=== PATIENT | female | born 1930 | race Caucasian/White ===

== ENCOUNTER 2016-08-23 12:45 | Inpatient (IN) ==
[2016-08-23] MEDS ORDERED: NS 500 ML IV ONE (13:30)
[2016-08-23 13:43] LABS: MANUAL DIFF NEEDED? NO
[2016-08-23 13:43] LABS: URINE CULTURE NEEDED? NO; URINE MICRO REVIEW NEEDED? NO; URINE SOURCE CATH
[2016-08-23 13:47] LABS: BASO% 0.1 % (0.0-0.8); EOS# 0.15 X1000 (0.0-0.7); EOS% 1.7 % (0.0-10.0); HEMATOCRIT 40.6 % (37.0-47.0); HEMOGLOBIN 12.9 g/dL (12.0-16.0); LYMPH% 13.7 % (20.5-51.1); MCH 28.4 PG (27-31); MCHC 31.8 g/dL (33-37); MCV 89.4 FL (81-99); MONO# 1.18 X1000 (0.11-0.59); MONO% 13.5 % (1.7-9.3); MPV 10.9 FL (7.4-10.4); PLT 225 X1000 (130-400); RBC 4.54 XMIL (4.2-5.4)
[2016-08-23 13:50] LABS: BILIRUBIN URINE NEGATIVE (NEGATIVE); BLOOD URINE NEGATIVE (NEGATIVE); COLOR YELLOW; GLUCOSE URINE NEGATIVE (NEGATIVE); LEUKOCYTES URINE NEGATIVE (NEGATIVE); NITRITE URINE NEGATIVE (NEGATIVE); PROTEIN URINE NEGATIVE (NEGATIVE); SP GRAVITY URINE 1.011; TURBIDITY URINE HAZY (CLEAR); UROBILINOGEN URINE NORMAL (NORMAL)
[2016-08-23 13:52] LABS: UR EPITHELIAL CELLS <10 /HPF (<10); URINE BACTERIA NEGATIVE /HPF; URINE RBC <10 /HPF (<10); URINE WBC <10 /HPF (<10)
[2016-08-23 13:57] LABS: ALBUMIN 3.2 g/dL (3.5-5.0); CALCIUM 10.3 mg/dL (8.8-10.2); MAGNESIUM 1.9 mg/dL (1.5-2.7); POTASSIUM 4.1 mmol/L (3.5-5.1); TOTAL BILIRUBIN 0.44 mg/dL (0.20-1.00); TOTAL PROTEIN 6.9 g/dL (6.3-8.3)
[2016-08-23] MEDS ORDERED: LASIX IV ONE (14:17)
--- NOTE | 2016-08-23 14:27 | PROVIDER DOCUMENTATION ---
This chart was entered by Beth White Scribe, acting as scribe for Joseph Naik MD. HPI-General Adult - General Chief Complaint: General Adult Stated Complaint: GENERALIZED WEAKNESS, DECREASE APPETITE Time Seen by Provider: 08/23/16 13:06 Source: patient Allergies/Adverse Reactions: Patient Allergies Allergy/AdvReac Type Severity Reaction Status Date / Time No Known Allergies Allergy Verified 08/23/16 13:02 Home Medications: Home Medication List Medication Instructions Recorded Confirmed Last Taken Type Aspirin 81 mg PO DAILY 05/12/15 08/23/16 08/22/16 History Donepezil [Aricept] 5 mg PO HS 05/12/15 08/23/16 08/22/16 History Topiramate 25 mg PO BID 05/12/15 08/23/16 08/22/16 History Cholecalciferol (Vit D3) [Vitamin 0 unit PO DAILY 08/23/16 08/23/16 08/22/16 History D3] Citalopram [Celexa] 20 mg PO DAILY 08/23/16 08/23/16 08/22/16 History Gabapentin 600 mg PO TID 08/23/16 08/23/16 08/22/16 History Levothyroxine Sodium 88 mcg PO DAILY 08/23/16 08/23/16 08/22/16 History Multivit-Min/FA/Lycopen/Lutein 1 each PO DAILY 08/23/16 08/23/16 08/22/16 History [Adults 50+ Multivitamin Tablet] [place]-3 Fatty Acids [Fish Oil] 0 mg PO DAILY 08/23/16 08/23/16 08/22/16 History - History of Present Illness -Gen Adult Nature of Presenting Problems: 85 year old female presents to the ER with complaint of generalized weakness and decreased appetite x 2 days. Pt uses walker to ambulate. Denies fall, LOC. Pt also reports sleeping for 17 hours straight 1 day ago. Onset/Duration: reports: 2 days ago Timing: reports: still present Associated Symptoms: reports: loss of appetite, weakness Review of Systems - Adult - REVIEW OF SYSTEMS - ADULT Constitutional: denies: chills, fever Eyes: reports: no symptoms reported Ears, Nose, Mouth & Throat: reports: no symptoms reported Cardiovascular: reports: no symptoms reported Respiratory: reports: no symptoms reported Gastrointestinal: reports: no symptoms reported Genitourinary: reports: no symptoms reported Musculoskeletal: reports: muscle weakness. denies: joint swelling Integumentary: reports: no symptoms reported Neurological: reports: no symptoms reported Psychiatric: reports: no symptoms reported Endocrine: reports: no symptoms reported Hematologic/Lymphatic: reports: no symptoms reported Allergic/Immunologic: reports: no symptoms reported All Other Systems: Reviewed and Negative Past History - Adult - PAST MEDICAL HISTORY-ADULT Review of Records: reports: Nursing Assessment Review, Medications Reviewed - IMMUNIZATION STATUS Childhood Immunizations: See Nurse Assessment Flu Vaccine: See Nurse Assessment Physical Exam-General - CONSTITUTIONAL General Appearance: alert, no apparent distress - EYES Eyes: PERRL/EOMI, pink conjunctivae - HEAD, EARS, NOSE, MOUTH & THROAT HENMT: normocephalic/atraumatic, moist mucous membranes - NECK Neck: full range of motion, normal inspection - RESPIRATORY Respiratory: lungs clear, normal breath sounds - CARDIOVASCULAR Cardiovascular: normal peripheral pulses, regular rate, rhythm - MUSCULOSKELETAL Back Exam: no CVA tenderness, no vertebral tenderness Extremity: normal range of motion, normal inspection - SKIN Integumentary: normal color, warm/dry - NEUROLOGIC Neurologic: grossly normal, no motor/sensory deficits - PSYCHIATRIC Psych/Mental Status: normal mood/affect, normal thought content, normal thought process, oriented x 3 Progress - PLAN OF CARE/RESULTS Progress/Plan/Lab Results: Vital Signs - 8 hr 08/23/16 13:00 08/23/16 13:09 Temperature 97.4 F L Pulse Rate 65 67 Respiratory Rate 13 22 Blood Pressure 111/59 109/56 O2 Sat by Pulse Oximetry 95 94 L Result Diagrams: 08/23/16 13:07 08/23/16 13:07 - REASSESSMENT Reassessment #1 Time Reassessed: 14:25 Status: improving (Pt is stable. Discussed with Dr. Bedoya, who is pt's PCP and is java application developer at [facility], agrees to admit pt to him at [facility]. Pt and her family are agreed with the plan.) Departure - Departure Time of Disposition Decision: 14:26 DIAGNOSIS: Generalized weakness CHF (congestive heart failure) Qualifiers: Congestive heart failure type: unspecified congestive heart failure type Congestive heart failure chronicity: acute Qualified Code(s): I50.9 - Heart failure, unspecified Hypotension Qualifiers: Hypotension type: unspecified hypotension type Qualified Code(s): I95.9 - Hypotension, unspecified Disposition: ADMITTED INPATIENT 09 Certified Medical Emergency: Emergent Condition: Stable - Critical Care Note This patient required my direct & personal management of CC.: No This chart was documented by the indicated scribe, (Beth White, Scribe) and accurately reflects the services I performed and decisions made by me, Joseph Naik MD, as attested by the provider's signature.
--- NOTE | 2016-08-23 14:29 | Diag Imaging Result Doc PS360 ---
EXAM: CHEST-PORTABLE HISTORY: Cough TECHNIQUE: AP portable at 1343 COMMENT: The inspiration is better than on 05/16/2015. There are granulomata on the left. Patient is rotated to the right as she was at the time the previous study. Otherwise has been no significant change. IMPRESSION: Stable chest. Electronically signed by Rod Donohue 08/23/2016 2:26 PM
[2016-08-23] MEDS ORDERED: ZOFRAN IV PRN (16:25)
[2016-08-23] MEDS ORDERED: TYLENOL PO PRN (16:25)
[2016-08-23] MEDS: NEURONTIN PO SCH (17:20)
[2016-08-23] MEDS: LASIX IV SCH (17:20)
[2016-08-23] MEDS: LOVENOX SUBQ SCH (17:20)
[2016-08-23] MEDS: TOPAMAX PO SCH (20:18)
[2016-08-23] MEDS: ARICEPT PO SCH (20:18)
[2016-08-24] MEDS: LASIX IV SCH (05:28)
[2016-08-24 06:27] LABS: CALCIUM 10.2 mg/dL (8.8-10.2); POTASSIUM 3.2 mmol/L (3.5-5.1)
[2016-08-24 06:28] LABS: HEMATOCRIT 35.3 % (37.0-47.0); HEMOGLOBIN 11.1 g/dL (12.0-16.0); MCHC 31.4 g/dL (33-37); MCV 89.1 FL (81-99); RBC 3.96 XMIL (4.2-5.4)
[2016-08-24] MEDS ORDERED: SYNTHROID PO SCH ×2 (07:00→07:26)
--- NOTE | 2016-08-24 07:44 | PROGRESS NOTE ---
DATE: 08/24/2016 SUBJECTIVE: Patient notes that she still feels tired and fatigued. She does not feel well. She has not been out of bed. Denies any chest pain or palpitations. PHYSICAL EXAMINATION: Vital Signs: Temperature 98, pulse 51, respiratory rate 16, BP 130/60, saturation 98% on room air. General: The patient is well developed, well nourished. She is currently in no real respiratory distress. She is pleasant to talk with. Neck: Supple. CV: Regular rate. Chest: Clear and nonlabored. Abdomen: Soft. Extremities: Moves all extremities. Neurologic: No changes. DIAGNOSTIC DATA: CBC and CMP essentially normal. BUN is increased to 26 and 1. BNP has decreased from 3015-0268. ASSESSMENT: 1. Congestive heart failure with exacerbation. We will stop the patient's Lasix at this point. She appears euvolemic. 2. Hypothyroidism. TSH is elevated at 6. We will increase her Synthroid to 100. 3. Adult failure to thrive. We will get physical therapy involved. 4. Depression. 5. Dementia. PLAN: As noted, increase Synthroid, stop Lasix, continue to follow. Get physical therapy. Certainly may need rehab. cc: Supa Bedoya MD
[2016-08-24] MEDS: CELEXA PO SCH (08:21)
[2016-08-24] MEDS: ASPIRIN PO SCH (08:21)
[2016-08-24] MEDS: NEURONTIN PO SCH ×3 (08:21→17:01)
[2016-08-24] MEDS: TOPAMAX PO SCH ×2 (08:21→20:22)
--- NOTE | 2016-08-24 09:59 | ECHO REPORT ---
ORDER DATE: 08/24/2016 ECHOCARDIOGRAPHIC MEASUREMENTS: 1. Interventricular septum 1.2, left ventricular posterior wall 1.3, diastolic diameter 3.7, left atrium 3.4, aorta 3.3. 2. Aortic valve leaflets are trileaflet, mildly sclerosed. Mitral valve was normal. There is mitral annular calcification. Tricuspid valve was normal. Left atrium was enlarged. 3. Normal left ventricular cavity size. Concentric left ventricular hypertrophy. Estimated ejection fraction of 55%. Endocardium not well visualized in all views. Right ventricle was mildly dilated. 4. The peak velocity across the aortic valve less than 2 m/sec. There is no aortic stenosis or regurgitation. There is mild mitral regurgitation, mild tricuspid regurgitation. Peak velocity across the tricuspid valve was 2.7 m/sec. Pulmonary artery systolic pressure of 39 mmHg. 5. There is no pericardial effusion or obvious intracardiac mass or thrombus seen. Anterior echo- free space suggestive of pericardial fat pad noted. cc: MD Supa Resendez MD
[2016-08-24] MEDS: LOVENOX SUBQ SCH (17:01)
[2016-08-24] MEDS: ARICEPT PO SCH (20:22)
[2016-08-25] MEDS ORDERED: NS 250 ML IV ONE (04:01)
[2016-08-25] MEDS ORDERED: KLOR-CON PO ONE (06:31)
[2016-08-25] MEDS ORDERED: SYNTHROID PO ONE (06:45)
--- NOTE | 2016-08-25 07:38 | PROGRESS NOTE ---
DATE: 08/25/2016 SUBJECTIVE: Patient without any new complaints this morning. Notes that she slept well last night. However, the staff notes that she had a marked elevation in her heart rate into the 140s last night. Unfortunately, at the same time, she also had a low blood pressure. PHYSICAL EXAMINATION: HEENT: Normocephalic and atraumatic. SHELLY. Neck: Supple. CV: Irregular rate, irregular rhythm. Chest: Positive rhonchi, otherwise clear. Abdomen: Soft. Extremities: Moves all extremities. Neurologic: No changes. ASSESSMENT: 1. Pulmonary edema, appears resolved. 2. Atrial fibrillation with rapid ventricular response in a patient with no previous known history of atrial fibrillation. 3. Dementia. 4. Pulmonary edema, likely secondary to atrial fibrillation as her ejection fraction is 55% on most recent echocardiogram. 5. Hypothyroidism. TSH elevated. We will increase her Synthroid. 6. Hypokalemia. Replace. 7. Hypotension. Patient's blood pressure dropped to 78/61. Most likely, this was secondary to overdiuresis. She was given a 250 mL normal saline bolus and her blood pressure is 106. PLAN: We will consult cardiology for assistance with her atrial fibrillation given her low heart rate. We will recheck labs and follow. cc: Supa Bedoya MD
[2016-08-25 08:35] LABS: HEMATOCRIT 36.9 % (37.0-47.0); MCH 28.6 PG (27-31); MCHC 32.5 g/dL (33-37); MCV 88.1 FL (81-99); MPV 10.5 FL (7.4-10.4); RBC 4.19 XMIL (4.2-5.4)
[2016-08-25 08:42] LABS: ALBUMIN 3.2 g/dL (3.5-5.0); CALCIUM 9.6 mg/dL (8.8-10.2); MAGNESIUM 1.8 mg/dL (1.5-2.7); POTASSIUM 3.4 mmol/L (3.5-5.1); TOTAL BILIRUBIN 0.4 mg/dL (0.20-1.00); TOTAL PROTEIN 6.5 g/dL (6.3-8.3)
[2016-08-25] MEDS: ASPIRIN PO SCH (09:15)
[2016-08-25] MEDS: TOPAMAX PO SCH ×2 (09:15→20:36)
[2016-08-25] MEDS: CELEXA PO SCH (09:15)
[2016-08-25] MEDS: NEURONTIN PO SCH ×3 (09:15→18:06)
[2016-08-25] MEDS ORDERED: POTASSIUM CHLORIDE 20% LIQUID PO ONE (13:49)
--- NOTE | 2016-08-25 14:31 | CONSULTATION ---
DATE OF CONSULTATION: 08/25/2016 REASON FOR CONSULTATION: Ms. Marielle Mathias is an 85-year-old lady who has dementia, atrial fibrillation, and hypothyroidism, who was brought to the emergency room as the patient was not doing well and was more unresponsive. She lives at her home with her daughter. She has significant dementia and has altered mental status. History was obtained from the chart as well as discussing with the daughter. Patient has arthritis and dementia, and uses a walker at home. However, they noticed that she has progressively gone downhill recently. Prior to this, she had not complained of any discomfort and they did not notice any worsening shortness of breath. Any untoward other symptoms were not mentioned to the patient's family. REVIEW OF SYSTEMS: A 14-point review of systems could not be obtained from the patient as she is disoriented, answering in monosyllables; however, she does not complain of chest discomfort or discomfort elsewhere. PAST MEDICAL HISTORY: Hypothyroidism. Dementia. She is not known to be allergic to any medication. She does not smoke or drink. She has depression. HOME MEDICATIONS: Aspirin 81 mg a day. Donepezil 5. Celexa 20. Levothyroxine 88. Gabapentin 600. PHYSICAL EXAMINATION: Vital Signs: Blood pressure 110/80. Cardiovascular System: Normal jugular venous pressure. First and second heart sounds were heard. There is faint systolic murmur. Respiratory System: Normal air entry. There is no crepitations or rhonchi. Distant breath sounds. Abdomen: Soft, nontender. Central nervous system: Patient was moving all 4 extremities. Detailed central nervous system examination not performed. LABORATORY EXAMINATION: Sodium 133, potassium 3.4, BUN 21, creatinine 0.9. Cardiac enzymes negative. proBNP 1031. TSH 2.30. ASSESSMENT AND PLAN: 1. Ms. Marielle Mathias is an 85-year-old lady with history of hypothyroidism, dementia, and arthritis, admitted with worsening altered mental status. Cardiology was consulted for atrial fibrillation, which is new. She had an episode of hypotension, as well, and was given IV fluids and her blood pressures are better. Given the episodes of hypotension and low blood pressure which she has had, I will put her on digoxin 0.125 mg a day. 2. Her echocardiogram revealed preserved left ventricular systolic function with dilated right ventricle. Given this, we will make sure that there is no pulmonary embolus. I will set her up to undergo a CT angiogram of her pulmonary arteries to rule out pulmonary embolism and to see if she has any airspace disease, as well. Chest x-ray was otherwise unremarkable. 3. As far as anticoagulation therapy is concerned, I had a discussion with her daughter. There is a fall risk, as well. This is to prevent a strobe, given her atrial fibrillation. Her potassium was low and we will replete potassium. Patient's daughter will contemplate regarding anticoagulation therapy and will advise us. Thank you for the consult. We will follow hospital course. cc: MD Supa Resendez MD MTDD
--- NOTE | 2016-08-25 15:34 | Diag Imaging Result Doc PS360 ---
EXAM: ANGIOGRAM/PULMONARY ARTERIES - 08/25/2016 HISTORY: afib/rv dilated TECHNIQUE: With intravenous contrast. Axial coronal images are obtained. Dose reduction protocol. COMPARISON: None. FINDINGS: There are some artifacts from motion, primarily at the upper lobes. There are no discrete filling defects identified in the pulmonary arteries. There are COPD changes. There is bronchiectasis at the right middle lobe. There is mild bronchiectasis at the left upper lobe. There is a left upper lobe calcified granuloma from old granulomatous disease. There is mild dependent atelectasis. There is no consolidation, pleural effusion, or pneumothorax identified. There is a small opacity small opacity in the posterior left upper lobe which abuts the major fissure but this is not well-visualized due to motion artifact. IMPRESSION: No evidence of pulmonary embolism. COPD changes. Bronchiectasis at right middle lobe. Mild bronchiectasis at left upper lobe. No discrete pneumonia. Small opacity at posterior left upper lobe abutting the major fissure. This may represent peripheral atelectasis or scar but evaluation is limited due to artifacts from motion. Electronically signed by Corey Lyon 08/25/2016 3:32 PM
[2016-08-25] MEDS: LANOXIN PO SCH (17:20)
[2016-08-25] MEDS: LOVENOX SUBQ SCH (17:20)
[2016-08-25] MEDS: ARICEPT PO SCH (20:37)
--- NOTE | 2016-08-26 05:41 | EKG Report ---
Test Performed on : 08/25/2016 1:29:37 PM Test Reason : afeb Blood Pressure : / mmHG Vent. Rate : 117 BPM Atrial Rate : 288 BPM P-R Int : 000 ms QRS Dur : 092 ms QT Int : 334 ms P-R-T Axes : 000 068 234 degrees QTc Int : 465 ms Atrial fibrillation. with rapid ventricular response. Marked ST abnormality, possible inferior subendocardial injury Abnormal ECG No previous ECGs available Confirmed by Nicolas Ward MD ([id number]) on 08/26/2016 7:18:48 AM
[2016-08-26 06:04] LABS: HEMATOCRIT 36.1 % (37.0-47.0); HEMOGLOBIN 11.1 g/dL (12.0-16.0); MCH 27.6 PG (27-31); MCHC 30.7 g/dL (33-37); MCV 89.8 FL (81-99); MPV 10.9 FL (7.4-10.4); RBC 4.02 XMIL (4.2-5.4)
--- NOTE | 2016-08-26 06:16 | Diag Imaging Result Doc PS360 ---
EXAM: CHEST-PORTABLE HISTORY: HYPOXIA TECHNIQUE: AP portable COMPARISON: 08/23/2016 FINDINGS: The lungs are well expanded. The patient is rotated to the right. The heart is not enlarged. The vessels are not distended. No infiltrates. No pleural effusions identified. There are granuloma in the mid right lung. IMPRESSION: No interval change. Electronically signed by George Olivares 08/26/2016 6:13 AM
[2016-08-26 06:34] LABS: CALCIUM 9.6 mg/dL (8.8-10.2); POTASSIUM 3.4 mmol/L (3.5-5.1); TOTAL BILIRUBIN 0.3 mg/dL (0.20-1.00); TOTAL PROTEIN 6.4 g/dL (6.3-8.3)
[2016-08-26] MEDS ORDERED: SYNTHROID PO SCH (07:00)
--- NOTE | 2016-08-26 08:00 | PROGRESS NOTE ---
DATE: 08/26/2016 SUBJECTIVE: Patient without any new complaints. PHYSICAL EXAMINATION: Vital Signs: Temperature 98, pulse 66, respiratory rate 16, BP 122/63, saturation 98% on room air. General: Patient is awake, alert. She is in no distress. She is confused and disoriented. Neck: Supple. CV: Appears regular rate at the present time. Chest: Clear. Positive rhonchi. Abdomen: Soft. Extremities: Moves all extremities. Neurologic: No focal changes. DIAGNOSTIC DATA: CBC and CMP essentially normal with a potassium of 3.4. Thyroid 5.56. ASSESSMENT: 1. Pulmonary edema, improved. Likely, this was secondary to intermittent atrial fibrillation but appears resolved at the present time. She had an echocardiogram yesterday with a relatively preserved ejection fraction of 55%. 2. Mild tricuspid and mitral regurgitation. 3. Atrial fibrillation, new onset. Currently stable on digoxin. 4. Hypotension, resolved. Blood pressures are better. 5. Hypothyroidism. TSH remains elevated. We have increased her Synthroid to 125. 6. Hypokalemia, resolved. 7. Chronic dementia. 8. Hypokalemia. We will replace. PLAN: Certainly agree with Dr. Chow that the patient is an extremely difficult risk to anticoagulate as she currently is having lots of fatigue and falling. I believe her risk of anticoagulation is higher than her benefit at this point. We will continue to hold. She has been started on digoxin. Her heart rate has improved. We will continue to increase her Synthroid and to continue to follow. cc: Supa Bedoya MD
[2016-08-26] MEDS: SYNTHROID PO SCH (09:03)
[2016-08-26] MEDS: ASPIRIN PO SCH (09:03)
[2016-08-26] MEDS: CELEXA PO SCH (09:03)
[2016-08-26] MEDS: TOPAMAX PO SCH ×2 (09:03→21:02)
[2016-08-26] MEDS: NEURONTIN PO SCH ×3 (09:04→16:29)
[2016-08-26] MEDS: LANOXIN PO SCH (09:08)
[2016-08-26] MEDS: LOVENOX SUBQ SCH (16:29)
[2016-08-26] MEDS: ARICEPT PO SCH (21:02)
[2016-08-27] MEDS: SYNTHROID PO SCH ×2 (06:17)
--- NOTE | 2016-08-27 07:03 | PROGRESS NOTE ---
DATE: 08/27/2016 SUBJECTIVE: Patient without any complaints. Lying in bed. Denies any palpitation. Denies any chest pain. PHYSICAL EXAMINATION: Vital Signs: Temperature 98, pulse 66, respiratory rate 16, blood pressure 122/52, heart rate 45-66, saturation 95% on room air. HEENT: Normocephalic, atraumatic. Neck: Supple. Cardiovascular: Bradycardia. No appreciable murmurs. Appears sinus. Chest: Clear, nonlabored. Abdomen: Soft. Extremities: Moves all extremities. ASSESSMENT: 1. Atrial fibrillation with rapid ventricular rate. Currently, in sinus rhythm and bradycardic. 2. Hypothyroidism. 3. Adult failure to thrive. 4. Depression, situational. 5. Chronic dementia. 6. Pulmonary edema. Patient does not have congestive heart failure by echocardiogram. 7. Hypokalemia, resolved. 8. Hypotension, resolved. PLAN: At this point, we will stop the patient's digoxin, as her heart rate is staying in the 40- 60 range. We will continue her other medications. We will continue Synthroid at 125. Given her low heart rates, we will not transition to rehab this morning, although hopefully can go over the next few days. cc: Supa Bedoya MD
[2016-08-27] MEDS: CELEXA PO SCH (09:18)
[2016-08-27] MEDS: NEURONTIN PO SCH ×3 (09:18→18:13)
[2016-08-27] MEDS: TOPAMAX PO SCH ×2 (09:18→20:00)
[2016-08-27] MEDS: ASPIRIN PO SCH (09:18)
[2016-08-27] MEDS: LOVENOX SUBQ SCH (18:13)
--- NOTE | 2016-08-27 19:29 | HISTORY AND PHYSICAL ---
CHIEF COMPLAINT: Generalized weakness. Decreased appetite. HISTORY OF PRESENT ILLNESS: This patient is an 85-year-old female who has a known history of dementia. She presented to the emergency department with increased weakness, decreased appetite. She normally uses a walker but she has been unable to ambulate with the walker over the past couple of days. The family notes that she has been sleeping 17+ hours a day. Her symptoms appear to be worsening. They deny any knowledge of fevers or chills but do state that symptoms are similar to when she has had a urinary infection in the past. ALLERGIES: No known drug allergies. MEDICATIONS: Aspirin 81, Aricept 5, Topamax 25 b.i.d., vitamin D, Celexa 20, gabapentin 600 three times a day, levothyroxine 88. PAST MEDICAL HISTORY: Situational depression, hypothyroidism, vitamin D deficiency, dementia. FAMILY HISTORY: Noncontributory. SOCIAL HISTORY: Patient lives at home. She is cared for by her . She does not smoke or drink. REVIEW OF SYSTEMS: Unobtainable from Ms. Mathias secondary to her dementia. Although the family denies any knowledge of fevers or chills, they deny any knowledge of GI or issues. They state that she has had much decreased oral intake over the past few days. PHYSICAL EXAMINATION: VITAL SIGNS: Temperature 97, pulse 65, respiratory rate 13, BP 111/59, saturating 95% on room air. GENERAL: Patient is awake, alert. She is currently in no respiratory distress. She is lying in bed quietly. She is pleasant to talk with. NECK: Supple. CARDIOVASCULAR: Regular rate. CHEST: Clear. ABDOMEN: Soft. EXTREMITIES: Moves all extremities. NEUROLOGIC: No focal changes. SKIN: Warm and dry. No rashes. LABORATORY DATA: CBC normal. CMP normal. ASSESSMENT: 1. Generalized weakness with adult failure to thrive. 2. Chronic dementia. 3. Situational depression. 4. History of systolic congestive heart failure. 5. Hypothyroidism. 6. Pulmonary edema with no previous history of congestive heart failure. PLAN: We will admit patient to hospital and treat her with IV Lasix for her pulmonary edema. We will continue to follow. Continue her home medications. We will check an echocardiogram in the morning. Further orders as needed. cc: Supa Bedoya MD
[2016-08-27] MEDS: ARICEPT PO SCH (20:00)
--- NOTE | 2016-08-27 20:31 | DISCHARGE SUMMARY ---
ADMISSION DATE: 08/23/2016 DISCHARGE DATE: 08/28/2016 DISCHARGE DIAGNOSES: 1. Atrial fibrillation with rapid ventricular response, currently sinus, on no medications. 2. Bradycardia resolved. She had bradycardia while on Lanoxin. This was stopped. 3. Pulmonary edema with no diagnosis of congestive heart failure, secondary to atrial fibrillation. 4. Adult failure to thrive. 5. Dementia, Alzheimer's type. 6. Hypothyroidism. 7. Situational depression. 8. Adult failure to thrive with decreased oral intake. CONSULTATIONS: Cardiology. PROCEDURES: Echocardiogram. BRIEF HOSPITAL COURSE: The patient is an 85-year-old female who was admitted as noted in the HPI and treated in the usual fashion. Placed on IV Lasix for a couple of days. She continued to improve. She did get a little dehydrated, therefore she was given a 250 bolus of normal saline and her Lasix was stopped. Over the next 36 hours she went into atrial fibrillation with rapid ventricular rate with a rate up into the 160s range. Her blood pressure unfortunately was low and therefore she would not tolerate Cardizem or other beta-gladys. Cardiology was consulted. Thankfully the bolus increased her blood pressure and she tolerated that well. The next morning echocardiogram was performed which did not demonstrate any congestive heart failure. Cardiology placed her on digoxin which she tolerated well, this lowered her heart rate over the next couple of days. Her heart rate actually dropped into the 60s and as low as the 40s. Her digoxin was stopped and her heart rate climbed back up. On discharge she was still in sinus. DISPOSITION: The patient will be discharged to a retirement. FOLLOWUP: She will follow up in the office as needed. Hopefully she will be able to gain some strength back in rehabilitation. No changes were made on her admission medications. DISCHARGE TIME: 35 minutes was spent in discharge planning and instructions. cc: Supa Bedoya MD
[2016-08-28 05:47] VITALS: BP 148/60
[2016-08-28] MEDS: SYNTHROID PO SCH ×2 (06:05)
[2016-08-28] MEDS ORDERED: ARICEPT PO SCH (08:08)
[2016-08-28] MEDS: NEURONTIN PO SCH (09:02)
[2016-08-28] MEDS: TOPAMAX PO SCH (09:02)
[2016-08-28] MEDS: ASPIRIN PO SCH (09:02)
[2016-08-28] MEDS: CELEXA PO SCH (09:02)
--- NOTE | 2016-08-28 09:33 | PROGRESS NOTE ---
DATE: 08/28/2016 SUBJECTIVE: The patient is without any new complaints. She is much more awake and alert this morning. She is feeling better. PHYSICAL: Temperature 97, pulse 61, respiratory rate 18, BP 148/60. General: The patient is awake and alert. She is in no distress. Cardiovascular: Regular rate. No appreciable murmurs. Chest is clear. Abdomen is soft. ASSESSMENT: 1. Atrial fibrillation currently in sinus rhythm. 2. Bradycardia, currently much improved with a heart rate in the mid 50s to upper 60s. She had dropped down into the upper 30s to low 40s while on digoxin. This currently is being held. 3. Situational depression. 4. Dementia. 5. Hypothyroidism. PLAN: We will increase her Synthroid to 137. We will continue baby aspirin a day. We will increase Aricept to 10. We will transition to rehab today. Further orders as needed. cc: Supa Bedoya MD
== END 2016-08-28 13:45 ==
LOC: ED 12:45 → P.MEDSURG 14:39
PROVIDERS: ADMIT Family Medicine; ATTEND Family Medicine

== ENCOUNTER 2016-09-17 11:28 | Inpatient (IN) ==
[2016-09-17 12:36] LABS: BASO% 0.1 % (0.0-0.8); EOS# 0.02 X1000 (0.0-0.7); EOS% 0.2 % (0.0-10.0); HEMATOCRIT 33.4 % (37.0-47.0); HEMOGLOBIN 10.5 g/dL (12.0-16.0); IMM GRAN# 0.02 X1000 (0.0-0.04); IMM GRAN% 0.2 % (0.0-0.5); LYMPH# 0.84 X1000 (1.2-3.4); MANUAL DIFF NEEDED? YES; MCH 28.5 PG (27-31); MCHC 31.4 g/dL (33-37); MCV 90.8 FL (81-99); MONO# 2.36 X1000 (0.11-0.59); MONO% 22.4 % (1.7-9.3); MPV 11.1 FL (7.4-10.4); NEUT% 69.1 % (42.2-75.2); PLT 126 X1000 (130-400); RBC 3.68 XMIL (4.2-5.4)
[2016-09-17 12:42] LABS: AGAP 9; ALBUMIN 3.3 g/dL (3.5-5.0); ALKALINE PHOSPHATASE 69 U/L (32-104); BUN 16 mg/dL (8-22); CALCIUM 9.8 mg/dL (8.8-10.2); CHLORIDE 100 mmol/L (98-107); CK PROFILE 32 U/L (24-173); COSMO 272; GOT 14 U/L (10-30); GPT 10 U/L (10-36); POTASSIUM 3.9 mmol/L (3.5-5.1); SODIUM 135 mmol/L (136-145); TCO2 26 mmol/L (25-35); TOTAL PROTEIN 6.7 g/dL (6.3-8.3)
[2016-09-17 12:51] LABS: INR 1.2 (0.86-1.15); PROTIME 15.5 Seconds (12.1-15.5)
[2016-09-17 12:52] LABS: PTT PL 31.4 Seconds (22.6-43.9)
[2016-09-17 13:00] LABS: LYMPHS 6 % (21-51); MONO 10 % (1-9)
[2016-09-17 15:31] LABS: BILIRUBIN URINE NEGATIVE (NEGATIVE); BLOOD URINE 3+ (NEGATIVE); CLARITY VERY CLOUDY (CLEAR); COLOR YELLOW; GLUCOSE URINE NEGATIVE (NEGATIVE); LEUKOCYTES URINE 2+ (NEGATIVE); NITRITE URINE POSITIVE (NEGATIVE); PROTEIN URINE 1+(30 mg/dL) mg/dL (NEGATIVE); SP GRAVITY URINE 1.015
[2016-09-17 15:32] LABS: URINE CULTURE PL NEEDED? YES; URINE EPITHELIAL CELLS <10 /HPF (<10); URINE RBC 20-40 /HPF (<10); URINE SOURCE CATH; URINE WBC 20-40 /HPF (<10); UROBILINOGEN URINE 4+(12 mg/dL)
[2016-09-18 06:27] LABS: HEMATOCRIT 30.6 % (37.0-47.0); HEMOGLOBIN 9.7 g/dL (12.0-16.0); MCH 28.4 PG (27-31); MCHC 31.7 g/dL (33-37); MCV 89.5 FL (81-99); RBC 3.42 XMIL (4.2-5.4)
[2016-09-18 06:41] LABS: AGAP 10; ALBUMIN 2.7 g/dL (3.5-5.0); ALKALINE PHOSPHATASE 61 U/L (32-104); BUN 17 mg/dL (8-22); CALCIUM 9.4 mg/dL (8.8-10.2); CHLORIDE 102 mmol/L (98-107); COSMO 271; GOT 10 U/L (10-30); GPT 8 U/L (10-36); POTASSIUM 3.4 mmol/L (3.5-5.1); SODIUM 135 mmol/L (136-145); TCO2 24 mmol/L (25-35)
[2016-09-21 06:30] LABS: HEMOGLOBIN 9.1 g/dL (12.0-16.0); MCH 28.1 PG (27-31); MCHC 31.4 g/dL (33-37); MCV 89.5 FL (81-99); RBC 3.24 XMIL (4.2-5.4)
[2016-09-21 06:41] LABS: AGAP 10; ALBUMIN 2.5 g/dL (3.5-5.0); ALKALINE PHOSPHATASE 56 U/L (32-104); BUN 11 mg/dL (8-22); CALCIUM 9.9 mg/dL (8.8-10.2); CHLORIDE 107 mmol/L (98-107); COSMO 280; GOT 11 U/L (10-30); GPT 8 U/L (10-36); MAGNESIUM 1.9 mg/dL (1.5-2.7); POTASSIUM 3.1 mmol/L (3.5-5.1); SODIUM 141 mmol/L (136-145); TCO2 24 mmol/L (25-35); TOTAL PROTEIN 5.4 g/dL (6.3-8.3)
[2016-09-22 03:41] VITALS: BP 162/88
== END 2016-09-22 13:45 | disposition home health service (06) ==
LOC: P.ED 11:28 → P.MEDSURG 16:20
PROVIDERS: ADMIT Family Medicine; ATTEND Family Medicine